=== PATIENT | female | born 1940 | race Two or more races ===

== ENCOUNTER 2021-10-31 13:13 | Inpatient (IN) | payer MEDICARE, OTHER ==
[~2021-10-31] VITALS: Ht 149.9 cm; Wt 88.9 kg
[2021-10-31] MEDS ORDERED: REMEDY ESSENTIAL ZINC PASTE 113 GM TOP PRN (19:15)
[2021-10-31 20:03] VITALS: BP 112/38
[2021-10-31] MEDS ORDERED: ASPI-866 PO ×2 (20:57→21:12)
[2021-10-31] MEDS ORDERED: CYCL30DR EACHEYE (20:58)
[2021-10-31] MEDS ORDERED: BRIM5DRO2 EACHEYE (21:05)
[2021-10-31] MEDS ORDERED: PHEN100C4 PO (21:05)
[2021-10-31] MEDS ORDERED: CYAN500T9 PO (21:05)
[2021-10-31] MEDS ORDERED: ALEN70TA80 PO (21:05)
[2021-10-31] MEDS ORDERED: LATA2.5D15 OP (21:05)
[2021-10-31] MEDS ORDERED: ERGO500040 PO (21:05)
[2021-10-31] MEDS ORDERED: DOCU250C14 PO (21:05)
[2021-10-31] MEDS ORDERED: ROSU10TA2 PO (21:12)
[2021-10-31] MEDS ORDERED: CLOP75TA15 PO (21:12)
[2021-10-31] MEDS ORDERED: LOSA1TAB36 PO (21:12)
[2021-10-31] MEDS ORDERED: BEPO10DR EACHEYE (21:12)
[2021-10-31] MEDS ORDERED: MECL-159 PO (21:12)
[2021-10-31] MEDS ORDERED: DICL50TA9 PO (21:12)
[2021-10-31] MEDS ORDERED: MEMA10TA PO (21:12)
[2021-10-31] MEDS ORDERED: DEXL60CA3 PO (21:12)
[2021-10-31] MEDS ORDERED: ICOS1CAP PO (21:12)
[2021-10-31] MEDS: PHENYTOIN SODIUM EXTENDED 100 MG CAPSULE.SA PO SCH (22:46)
[2021-11-01 03:16] VITALS: BP 120/68
--- NOTE | 2021-11-01 05:55 | NUR ---
Arrived at 2002 from [facility] via gurney by ambulance. AO x2, forgetful and confused at times. On 2L NC saturating at 97-98%, titrated O2 1L NC saturating at 95%. No signs of acute distress noted. Turkish speaking, able to understand basic [place]i. IV in R hand intact, patent and saline flushed. Seizure precautions implemented. MRSA swab done. Denies pain and discomfort. Call lights within reach. Safety measures maintained. Will endorse to am shift.
--- NOTE | 2021-11-01 07:30 | NUR ---
Alert, oriented x 1, calm and cooperative. O2 at 1L/NC. Bed alarm on
[2021-11-01 08:06] VITALS: BP 110/40
[2021-11-01] MEDS ORDERED: MECLIZINE HCL 25 MG TABLET PO PRN ×2 (11:15→12:18)
--- NOTE | 2021-11-01 12:00 | NUR ---
PT/OT/ST juanjose done. Assisted with meal, able to consume 25% of food served.
--- NOTE | 2021-11-01 16:00 | NUR ---
Patient more confused. Assisted to the bathroom with FWW.
[2021-11-01] MEDS ORDERED: DOCUSATE SODIUM 250 MG CAPSULE PO SCH (17:00)
[2021-11-01] MEDS: MEMANTINE HCL 10 MG TABLET PO SCH (17:33)
[2021-11-01] MEDS: DOCUSATE SODIUM 100 MG CAPSULE PO SCH (17:34)
[2021-11-01] MEDS ORDERED: DICLOFENAC SODIUM 50 MG PO SCH (18:00)
--- NOTE | 2021-11-01 18:47 | NUR ---
Room air with O2 sat of 96%. Free from fall or injury. Bed alarm on
[2021-11-01 20:00] VITALS: BP 120/77
[2021-11-01] MEDS ORDERED: PHENYTOIN SODIUM EXTENDED 100 MG CAPSULE.SA PO SCH (21:00)
[2021-11-01] MEDS: BRIMONIDINE 0.2% OPHT DROP 10 ML BOTTLE EACHEYE SCH (21:06)
[2021-11-01] MEDS: LATANOPROST OPHT DROP 2.5 ML BOTTLE EACHEYE SCH (21:07)
[2021-11-01] MEDS: PHENYTOIN SODIUM EXTENDED 100 MG CAPSULE.SA PO SCH (21:07)
[2021-11-01] MEDS: ATORVASTATIN 20 MG TABLET PO SCH (21:07)
[2021-11-01] MEDS: TIMOLOL MALEATE 0.5% OPHT DROP 5 ML BOTTLE EACHEYE SCH (21:30)
[2021-11-02 04:45] VITALS: BP 133/50
--- NOTE | 2021-11-02 05:08 | NUR ---
Awake alert and oriented x1-2 Confused and disoriented. Needs attended. Kept comfortable. Incontinent of bowel and bladder. Kept clean and dry. Will monitor patient.VSS.
[2021-11-02] MEDS: PANTOPRAZOLE SODIUM 40 MG TABLET.DR PO SCH (06:30)
[2021-11-02 08:00] VITALS: BP 116/59
[2021-11-02] MEDS ORDERED: Medication Not On Formulary EA (Cyanocobalamin (Vitamin B-12) 500 MCG) PO SCH (09:00)
[2021-11-02] MEDS ORDERED: Medication Not On Formulary EA (Rosuvastatin Calcium (Crestor) 1 TAB) PO SCH (09:00)
[2021-11-02] MEDS ORDERED: Icosapent Ethyl (Vascepa) 1 GM) PO SCH (09:00)
[2021-11-02] MEDS ORDERED: Medication Not On Formulary EA (Losartan/Hydrochlorothiazide (Losartan-Hctz 50-12.5 Mg T PO SCH (09:00)
[2021-11-02] MEDS ORDERED: LOSARTAN POTASSIUM 50 MG TABLET PO SCH (09:00)
[2021-11-02] MEDS: CLOPIDOGREL 75 MG TABLET PO SCH (10:07)
[2021-11-02] MEDS: ASPIRIN EC 81 MG TABLET.DR PO SCH (10:07)
[2021-11-02] MEDS: HYDROCHLOROTHIAZIDE 12.5 MG CAPSULE PO SCH (10:08)
[2021-11-02] MEDS: LOSARTAN POTASSIUM 50 MG TABLET PO SCH (10:08)
[2021-11-02] MEDS: CYANOCOBALAMIN 1,000 MCG TABLET PO SCH (10:09)
[2021-11-02] MEDS: DOCUSATE SODIUM 100 MG CAPSULE PO SCH ×2 (10:09→16:47)
[2021-11-02] MEDS: MEMANTINE HCL 10 MG TABLET PO SCH ×2 (10:09→16:47)
[2021-11-02] MEDS: BRIMONIDINE 0.2% OPHT DROP 10 ML BOTTLE EACHEYE SCH ×2 (10:11→20:58)
[2021-11-02] MEDS: TIMOLOL MALEATE 0.5% OPHT DROP 5 ML BOTTLE EACHEYE SCH ×2 (10:11→20:57)
[2021-11-02 15:14] VITALS: BP 102/54
[2021-11-02 20:34] VITALS: BP 123/60
[2021-11-02] MEDS: LATANOPROST OPHT DROP 2.5 ML BOTTLE EACHEYE SCH (20:57)
[2021-11-02] MEDS: PHENYTOIN SODIUM EXTENDED 100 MG CAPSULE.SA PO SCH (20:58)
[2021-11-02] MEDS: ATORVASTATIN 20 MG TABLET PO SCH (20:58)
[2021-11-03 04:25] VITALS: BP 129/81
--- NOTE | 2021-11-03 04:52 | NUR ---
Quiet night. AAOx1-2 Confused and disoriented. VSS. Needs attended. All due meds given. Fall precautions maintained. Incontinent of bowel and bladder. Kept clean and dry. No BM noted this shift. All eyedrops given as scheduled.Will monitor.
[2021-11-03] MEDS: PANTOPRAZOLE SODIUM 40 MG TABLET.DR PO SCH (06:10)
[2021-11-03] MEDS: ALENDRONATE SODIUM 70 MG TABLET PO SCH (06:34)
[2021-11-03] MEDS: DOCUSATE SODIUM 100 MG CAPSULE PO SCH ×2 (08:35→17:24)
[2021-11-03] MEDS: LOSARTAN POTASSIUM 50 MG TABLET PO SCH (08:36)
[2021-11-03] MEDS: CYANOCOBALAMIN 1,000 MCG TABLET PO SCH (08:40)
[2021-11-03] MEDS: HYDROCHLOROTHIAZIDE 12.5 MG CAPSULE PO SCH (08:40)
[2021-11-03] MEDS: ASPIRIN EC 81 MG TABLET.DR PO SCH (08:40)
[2021-11-03] MEDS: MEMANTINE HCL 10 MG TABLET PO SCH ×2 (08:41→17:24)
[2021-11-03] MEDS: CLOPIDOGREL 75 MG TABLET PO SCH (08:41)
[2021-11-03] MEDS: TIMOLOL MALEATE 0.5% OPHT DROP 5 ML BOTTLE EACHEYE SCH ×2 (08:45→20:38)
[2021-11-03] MEDS: BRIMONIDINE 0.2% OPHT DROP 10 ML BOTTLE EACHEYE SCH ×2 (08:45→20:39)
[2021-11-03 08:52] VITALS: BP 137/50
--- NOTE | 2021-11-03 09:24 | NUR ---
INDIVIDUALIZED PLAN OF CARE
[2021-11-03] MEDS: ERGOCALCIFEROL 50,000 UNIT CAPSULE PO SCH (14:22)
[2021-11-03 15:57] VITALS: BP 133/59
[2021-11-03] MEDS: GLUCERNA SHAKE VANILLA 237 ML CAN PO SCH (17:24)
[2021-11-03 20:04] VITALS: BP 111/41
[2021-11-03] MEDS: LATANOPROST OPHT DROP 2.5 ML BOTTLE EACHEYE SCH (20:39)
[2021-11-03] MEDS: ATORVASTATIN 20 MG TABLET PO SCH (20:39)
[2021-11-03] MEDS: PHENYTOIN SODIUM EXTENDED 100 MG CAPSULE.SA PO SCH (20:39)
[2021-11-04 04:54] VITALS: BP 223/58
[2021-11-04] MEDS: PANTOPRAZOLE SODIUM 40 MG TABLET.DR PO SCH (06:17)
--- NOTE | 2021-11-04 07:50 | NUR ---
RECEIVED PATIENT IN BED AWAKE ALERT AND AWARE WITH LANGUAGE BARRIER BUT ABLE TO MAKE SIMPLE NEEDS KNOWN ON ROOM AIR WITH NO SHORTNESS OF BREATH CALL LIGHTS AND PERSONAL BELONGINGS ARE WITHIN EASY REACH WILL CONTINUE WITH THERAPIES ORDERED WILL CONTINUE TO OBSERVE AND PROVIDE SAFETY.
[2021-11-04 08:00] VITALS: BP 110/56
[2021-11-04] MEDS: CLOPIDOGREL 75 MG TABLET PO SCH (09:03)
[2021-11-04] MEDS: CYANOCOBALAMIN 1,000 MCG TABLET PO SCH (09:03)
[2021-11-04] MEDS: LOSARTAN POTASSIUM 50 MG TABLET PO SCH (09:04)
[2021-11-04] MEDS: ASPIRIN EC 81 MG TABLET.DR PO SCH (09:04)
[2021-11-04] MEDS: MEMANTINE HCL 10 MG TABLET PO SCH ×2 (09:04→17:14)
[2021-11-04] MEDS: DOCUSATE SODIUM 100 MG CAPSULE PO SCH ×2 (09:04→17:13)
[2021-11-04] MEDS: HYDROCHLOROTHIAZIDE 12.5 MG CAPSULE PO SCH (09:04)
[2021-11-04] MEDS: TRIAMCINOLONE ACET 0.025% CREA 15 GM TUBE TP SCH ×2 (09:05→17:19)
[2021-11-04] MEDS: BRIMONIDINE 0.2% OPHT DROP 10 ML BOTTLE EACHEYE SCH ×2 (09:05→20:52)
[2021-11-04] MEDS: TIMOLOL MALEATE 0.5% OPHT DROP 5 ML BOTTLE EACHEYE SCH ×2 (09:05→20:51)
[2021-11-04] MEDS: GLUCERNA SHAKE VANILLA 237 ML CAN PO SCH (09:12)
--- NOTE | 2021-11-04 15:35 | NUR ---
NOTED A SUPERFICIAL PEELING OF THE SKIN ON HER RIGHT ELBOW DID NOT KNOW HOW IT HAPPENED NO BLEEDING CLEANSED WITH SERGIO MCMILLAN NOTIFIED WITH NEW ORDERS AND NOTED.
[2021-11-04 16:00] VITALS: BP 110/59
[2021-11-04] MEDS: NEOMY/BACITRAC/POLYMI OINT 28.35 GM TUBE TOP SCH (16:05)
--- NOTE | 2021-11-04 18:00 | NUR ---
RESTING IN ROOM ENCOURAGED TO EAT HER DINNER SHE HAS POOR APPETITE.
[2021-11-04 20:06] VITALS: BP 109/45
[2021-11-04] MEDS: PHENYTOIN SODIUM EXTENDED 100 MG CAPSULE.SA PO SCH (20:50)
[2021-11-04] MEDS: ATORVASTATIN 20 MG TABLET PO SCH (20:51)
[2021-11-04] MEDS: LATANOPROST OPHT DROP 2.5 ML BOTTLE EACHEYE SCH (20:52)
[2021-11-05 04:06] VITALS: BP 117/55
[2021-11-05] MEDS: PANTOPRAZOLE SODIUM 40 MG TABLET.DR PO SCH (06:13)
--- NOTE | 2021-11-05 07:30 | NUR ---
IN BED AWAKE ALERT WITH LANGUAGE BARRIER ABLE TO MAKE SIMPLE NEEDS KNOWN DENIES PAIN OR DISCOMFORTS AT THIS TIME CALL LIGHTS AND HER PERSONAL BELONGINGS ARE WITHIN EASY REACH WILL CONTINUE TO OBSERVE
--- NOTE | 2021-11-05 07:55 | NUR ---
PATIENT SEEN IN HALLWAY WALKING FROM HER ROOM WITH A FRONT WHEEL WALKER PATIENT ASSISTED BACK TO HER ROOM AND ENCOURAGED TO ASK FOR A STAND BYE ASSIST WHENEVER SHE FEELS LIKE WALKING FOR SAFETY AND SHE EXPRESSED UNDERSTANDING.
[2021-11-05 08:22] VITALS: BP 122/72
[2021-11-05] MEDS: BRIMONIDINE 0.2% OPHT DROP 10 ML BOTTLE EACHEYE SCH ×2 (08:26→21:26)
[2021-11-05] MEDS: TIMOLOL MALEATE 0.5% OPHT DROP 5 ML BOTTLE EACHEYE SCH ×2 (08:26→21:26)
[2021-11-05] MEDS: ASPIRIN EC 81 MG TABLET.DR PO SCH (08:27)
[2021-11-05] MEDS: HYDROCHLOROTHIAZIDE 12.5 MG CAPSULE PO SCH (08:27)
[2021-11-05] MEDS: DOCUSATE SODIUM 100 MG CAPSULE PO SCH ×2 (08:27→16:49)
[2021-11-05] MEDS: MEMANTINE HCL 10 MG TABLET PO SCH ×2 (08:27→16:49)
[2021-11-05] MEDS: CLOPIDOGREL 75 MG TABLET PO SCH (08:27)
[2021-11-05] MEDS: CYANOCOBALAMIN 1,000 MCG TABLET PO SCH (08:27)
[2021-11-05] MEDS: LOSARTAN POTASSIUM 50 MG TABLET PO SCH (08:28)
[2021-11-05] MEDS: GLUCERNA SHAKE VANILLA 237 ML CAN PO SCH (08:28)
[2021-11-05] MEDS: TRIAMCINOLONE ACET 0.025% CREA 15 GM TUBE TP SCH ×2 (08:30→16:49)
[2021-11-05] MEDS: NEOMY/BACITRAC/POLYMI OINT 28.35 GM TUBE TOP SCH (08:30)
[2021-11-05 15:37] VITALS: BP 90/43
[2021-11-05 20:34] VITALS: BP 105/47
[2021-11-05] MEDS: PHENYTOIN SODIUM EXTENDED 100 MG CAPSULE.SA PO SCH (21:26)
[2021-11-05] MEDS: LATANOPROST OPHT DROP 2.5 ML BOTTLE EACHEYE SCH (21:26)
[2021-11-05] MEDS: ATORVASTATIN 20 MG TABLET PO SCH (21:26)
--- NOTE | 2021-11-06 04:44 | NUR ---
Awake alert and oriented x3-4 All needs attended. VSS. Repositioned for comfort. OOB to the BR with supervision Tolerated all her eyedrops given @ bedside. No acute distress noted.
[2021-11-06 04:47] VITALS: BP 133/74
[2021-11-06] MEDS: PANTOPRAZOLE SODIUM 40 MG TABLET.DR PO SCH (06:10)
[2021-11-06 09:11] VITALS: BP 124/64
[2021-11-06] MEDS: BRIMONIDINE 0.2% OPHT DROP 10 ML BOTTLE EACHEYE SCH ×2 (09:29→20:15)
[2021-11-06] MEDS: CLOPIDOGREL 75 MG TABLET PO SCH (09:31)
[2021-11-06] MEDS: DOCUSATE SODIUM 100 MG CAPSULE PO SCH ×2 (09:31→17:41)
[2021-11-06] MEDS: MEMANTINE HCL 10 MG TABLET PO SCH ×2 (09:31→17:40)
[2021-11-06] MEDS: CYANOCOBALAMIN 1,000 MCG TABLET PO SCH (09:32)
[2021-11-06] MEDS: TIMOLOL MALEATE 0.5% OPHT DROP 5 ML BOTTLE EACHEYE SCH ×2 (09:33→20:15)
[2021-11-06] MEDS: ASPIRIN EC 81 MG TABLET.DR PO SCH (09:33)
[2021-11-06] MEDS: LOSARTAN POTASSIUM 50 MG TABLET PO SCH (09:33)
[2021-11-06] MEDS: HYDROCHLOROTHIAZIDE 12.5 MG CAPSULE PO SCH (09:34)
[2021-11-06] MEDS: GLUCERNA SHAKE VANILLA 237 ML CAN PO SCH (09:34)
[2021-11-06] MEDS: TRIAMCINOLONE ACET 0.025% CREA 15 GM TUBE TP SCH ×2 (09:40→17:56)
[2021-11-06] MEDS: NEOMY/BACITRAC/POLYMI OINT 28.35 GM TUBE TOP SCH (09:41)
--- NOTE | 2021-11-06 15:49 | NUR ---
INTERDISCIPLINARY TEAM CONFERENCE
[2021-11-06 17:12] VITALS: BP 109/41
[2021-11-06] MEDS: PHENYTOIN SODIUM EXTENDED 100 MG CAPSULE.SA PO SCH (20:14)
[2021-11-06] MEDS: ATORVASTATIN 20 MG TABLET PO SCH (20:14)
[2021-11-06] MEDS: LATANOPROST OPHT DROP 2.5 ML BOTTLE EACHEYE SCH (20:16)
[2021-11-06 20:45] VITALS: BP 112/54
--- NOTE | 2021-11-06 22:06 | NUR ---
AAOx4 OOB with walker to the BR. Voiding well. Needs attended. VSS. Tolerated po meds well. Kept comfortable. No complaints presented during the shift. Fall precautions maintained.. Siderails up for safety. Call abdul within reach.
[2021-11-07 04:32] VITALS: BP 112/50
[2021-11-07] MEDS: PANTOPRAZOLE SODIUM 40 MG TABLET.DR PO SCH (06:14)
[2021-11-07 06:49] LABS: HEMATOCRIT 36.6 % (31.2-41.9); MEAN CORPUSCULAR HEMOGLOBIN 30.7 uug (24.7-32.8); MEAN CORPUSCULAR VOLUME 91.9 fL (75.5-95.3); PLATELET COUNT (AUTO) 542 K/uL (179-408)
[2021-11-07 07:19] LABS: CREATININE 0.9 mg/dL (0.6-1.3); MAGNESIUM 2.1 mg/dL (1.8-2.4); PHOSPHOROUS 3.4 mg/dL (2.5-4.9); POTASSIUM 4.1 mmol/L (3.5-5.1)
[2021-11-07 07:57] VITALS: BP 143/67
[2021-11-07] MEDS: BRIMONIDINE 0.2% OPHT DROP 10 ML BOTTLE EACHEYE SCH ×2 (08:18→20:37)
[2021-11-07] MEDS: CYANOCOBALAMIN 1,000 MCG TABLET PO SCH (08:19)
[2021-11-07] MEDS: HYDROCHLOROTHIAZIDE 12.5 MG CAPSULE PO SCH (08:19)
[2021-11-07] MEDS: CLOPIDOGREL 75 MG TABLET PO SCH (08:19)
[2021-11-07] MEDS: LOSARTAN POTASSIUM 50 MG TABLET PO SCH (08:19)
[2021-11-07] MEDS: MEMANTINE HCL 10 MG TABLET PO SCH ×2 (08:19→17:22)
[2021-11-07] MEDS: ASPIRIN EC 81 MG TABLET.DR PO SCH (08:20)
[2021-11-07] MEDS: NEOMY/BACITRAC/POLYMI OINT 28.35 GM TUBE TOP SCH (08:21)
[2021-11-07] MEDS: TRIAMCINOLONE ACET 0.025% CREA 15 GM TUBE TP SCH ×2 (08:21→17:27)
[2021-11-07] MEDS: DOCUSATE SODIUM 100 MG CAPSULE PO SCH ×2 (08:23→17:26)
[2021-11-07] MEDS: GLUCERNA SHAKE VANILLA 237 ML CAN PO SCH (08:23)
[2021-11-07] MEDS: TIMOLOL MALEATE 0.5% OPHT DROP 5 ML BOTTLE EACHEYE SCH ×2 (08:27→20:36)
[2021-11-07 16:01] VITALS: BP 96/42
--- NOTE | 2021-11-07 18:46 | NUR ---
Patient remains alert, not in any form of distress, on room air. She denies any pain or discomfort. Participated with PT/OT during the shift and tolerated well. She is compliant with medications and care. Assisted with her needs. Call light and frequently used items placed within patient's reach.
[2021-11-07 20:33] VITALS: BP 95/51
[2021-11-07] MEDS: LATANOPROST OPHT DROP 2.5 ML BOTTLE EACHEYE SCH (20:36)
[2021-11-07] MEDS: ATORVASTATIN 20 MG TABLET PO SCH (20:37)
[2021-11-07] MEDS: PHENYTOIN SODIUM EXTENDED 100 MG CAPSULE.SA PO SCH (20:37)
[2021-11-08 04:46] VITALS: BP 127/74
[2021-11-08] MEDS: PANTOPRAZOLE SODIUM 40 MG TABLET.DR PO SCH (06:08)
[2021-11-08 08:00] VITALS: BP 125/63
[2021-11-08] MEDS: BRIMONIDINE 0.2% OPHT DROP 10 ML BOTTLE EACHEYE SCH ×2 (08:36→21:09)
[2021-11-08] MEDS: TIMOLOL MALEATE 0.5% OPHT DROP 5 ML BOTTLE EACHEYE SCH ×2 (08:37→21:08)
[2021-11-08] MEDS: LOSARTAN POTASSIUM 50 MG TABLET PO SCH (08:42)
[2021-11-08] MEDS: DOCUSATE SODIUM 100 MG CAPSULE PO SCH ×2 (08:42→17:14)
[2021-11-08] MEDS: MEMANTINE HCL 10 MG TABLET PO SCH ×2 (08:43→17:14)
[2021-11-08] MEDS: CLOPIDOGREL 75 MG TABLET PO SCH (08:43)
[2021-11-08] MEDS: ASPIRIN EC 81 MG TABLET.DR PO SCH (08:43)
[2021-11-08] MEDS: CYANOCOBALAMIN 1,000 MCG TABLET PO SCH (08:43)
[2021-11-08] MEDS: HYDROCHLOROTHIAZIDE 12.5 MG CAPSULE PO SCH (08:43)
[2021-11-08] MEDS: TRIAMCINOLONE ACET 0.025% CREA 15 GM TUBE TP SCH ×2 (08:44→17:14)
[2021-11-08] MEDS: NEOMY/BACITRAC/POLYMI OINT 28.35 GM TUBE TOP SCH (08:44)
[2021-11-08] MEDS: GLUCERNA SHAKE VANILLA 237 ML CAN PO SCH (08:52)
--- NOTE | 2021-11-08 14:17 | NUR ---
Patient remains AAOX4, not in any form of distress, on room air. She denies any pain or discomfort. Participated with PT/OT during the shift, ambulate with FWW and tolerated well. She is compliant with medications and care. Assisted with her needs. Call light and frequently used items placed within patient's reach.
[2021-11-08 15:45] VITALS: BP 103/47
[2021-11-08] MEDS: ATORVASTATIN 20 MG TABLET PO SCH (20:54)
[2021-11-08] MEDS: PHENYTOIN SODIUM EXTENDED 100 MG CAPSULE.SA PO SCH (21:05)
[2021-11-08] MEDS: LATANOPROST OPHT DROP 2.5 ML BOTTLE EACHEYE SCH (21:09)
[2021-11-09 04:40] VITALS: BP 146/70
[2021-11-09] MEDS: PANTOPRAZOLE SODIUM 40 MG TABLET.DR PO SCH (06:08)
[2021-11-09 08:05] VITALS: BP 122/62
[2021-11-09] MEDS: ASPIRIN EC 81 MG TABLET.DR PO SCH (08:59)
[2021-11-09] MEDS: CYANOCOBALAMIN 1,000 MCG TABLET PO SCH (08:59)
[2021-11-09] MEDS: HYDROCHLOROTHIAZIDE 12.5 MG CAPSULE PO SCH (08:59)
[2021-11-09] MEDS: MEMANTINE HCL 10 MG TABLET PO SCH ×2 (08:59→16:47)
[2021-11-09] MEDS: DOCUSATE SODIUM 100 MG CAPSULE PO SCH ×2 (08:59→16:47)
[2021-11-09] MEDS: BRIMONIDINE 0.2% OPHT DROP 10 ML BOTTLE EACHEYE SCH ×2 (09:00→20:02)
[2021-11-09] MEDS: LOSARTAN POTASSIUM 50 MG TABLET PO SCH (09:00)
[2021-11-09] MEDS: CLOPIDOGREL 75 MG TABLET PO SCH (09:00)
[2021-11-09] MEDS: NEOMY/BACITRAC/POLYMI OINT 28.35 GM TUBE TOP SCH (09:02)
[2021-11-09] MEDS: GLUCERNA SHAKE VANILLA 237 ML CAN PO SCH (09:02)
[2021-11-09] MEDS: TRIAMCINOLONE ACET 0.025% CREA 15 GM TUBE TP SCH ×2 (09:02→16:48)
[2021-11-09] MEDS: TIMOLOL MALEATE 0.5% OPHT DROP 5 ML BOTTLE EACHEYE SCH ×2 (09:09→20:01)
[2021-11-09 16:13] VITALS: BP 93/45
[2021-11-09] MEDS: LATANOPROST OPHT DROP 2.5 ML BOTTLE EACHEYE SCH (20:02)
[2021-11-09] MEDS: PHENYTOIN SODIUM EXTENDED 100 MG CAPSULE.SA PO SCH (20:03)
[2021-11-09] MEDS: ATORVASTATIN 20 MG TABLET PO SCH (20:03)
[2021-11-09 20:20] VITALS: BP 135/62
[2021-11-10 04:32] VITALS: BP 114/53
[2021-11-10] MEDS: PANTOPRAZOLE SODIUM 40 MG TABLET.DR PO SCH (06:01)
[2021-11-10] MEDS: ALENDRONATE SODIUM 70 MG TABLET PO SCH (06:01)
[2021-11-10 07:42] VITALS: BP 125/54
[2021-11-10] MEDS: HYDROCHLOROTHIAZIDE 12.5 MG CAPSULE PO SCH (09:43)
[2021-11-10] MEDS: MEMANTINE HCL 10 MG TABLET PO SCH ×2 (09:44→17:24)
[2021-11-10] MEDS: LOSARTAN POTASSIUM 50 MG TABLET PO SCH (09:44)
[2021-11-10] MEDS: CLOPIDOGREL 75 MG TABLET PO SCH (09:44)
[2021-11-10] MEDS: DOCUSATE SODIUM 100 MG CAPSULE PO SCH ×2 (09:44→17:25)
[2021-11-10] MEDS: ASPIRIN EC 81 MG TABLET.DR PO SCH (09:44)
[2021-11-10] MEDS: CYANOCOBALAMIN 1,000 MCG TABLET PO SCH (09:48)
[2021-11-10] MEDS: NEOMY/BACITRAC/POLYMI OINT 28.35 GM TUBE TOP SCH (09:49)
[2021-11-10] MEDS: TRIAMCINOLONE ACET 0.025% CREA 15 GM TUBE TP SCH ×2 (09:49→17:30)
[2021-11-10] MEDS: BRIMONIDINE 0.2% OPHT DROP 10 ML BOTTLE EACHEYE SCH ×2 (09:50→20:35)
[2021-11-10] MEDS: GLUCERNA SHAKE VANILLA 237 ML CAN PO SCH (09:52)
[2021-11-10] MEDS: TIMOLOL MALEATE 0.5% OPHT DROP 5 ML BOTTLE EACHEYE SCH ×2 (09:59→20:35)
[2021-11-10] MEDS: ERGOCALCIFEROL 50,000 UNIT CAPSULE PO SCH (14:38)
[2021-11-10 15:06] VITALS: BP 124/55
[2021-11-10] MEDS: ATORVASTATIN 20 MG TABLET PO SCH (20:34)
[2021-11-10] MEDS: PHENYTOIN SODIUM EXTENDED 100 MG CAPSULE.SA PO SCH (20:34)
[2021-11-10] MEDS: LATANOPROST OPHT DROP 2.5 ML BOTTLE EACHEYE SCH (20:36)
[2021-11-10 20:37] VITALS: BP 100/48
[2021-11-11 04:46] VITALS: BP 119/54
[2021-11-11] MEDS: PANTOPRAZOLE SODIUM 40 MG TABLET.DR PO SCH (05:47)
[2021-11-11 08:00] VITALS: BP 96/60
[2021-11-11] MEDS: LOSARTAN POTASSIUM 50 MG TABLET PO SCH (09:00)
[2021-11-11] MEDS: BRIMONIDINE 0.2% OPHT DROP 10 ML BOTTLE EACHEYE SCH ×2 (09:44→20:54)
[2021-11-11] MEDS: CLOPIDOGREL 75 MG TABLET PO SCH (09:45)
[2021-11-11] MEDS: TIMOLOL MALEATE 0.5% OPHT DROP 5 ML BOTTLE EACHEYE SCH ×2 (09:45→20:54)
[2021-11-11] MEDS: ASPIRIN EC 81 MG TABLET.DR PO SCH (09:46)
[2021-11-11] MEDS: HYDROCHLOROTHIAZIDE 12.5 MG CAPSULE PO SCH (09:46)
[2021-11-11] MEDS: DOCUSATE SODIUM 100 MG CAPSULE PO SCH ×2 (09:46→16:49)
[2021-11-11] MEDS: MEMANTINE HCL 10 MG TABLET PO SCH ×2 (09:48→16:49)
[2021-11-11] MEDS: CYANOCOBALAMIN 1,000 MCG TABLET PO SCH (09:49)
[2021-11-11] MEDS: TRIAMCINOLONE ACET 0.025% CREA 15 GM TUBE TP SCH ×2 (09:51→16:49)
[2021-11-11] MEDS: NEOMY/BACITRAC/POLYMI OINT 28.35 GM TUBE TOP SCH (09:51)
[2021-11-11] MEDS: GLUCERNA SHAKE VANILLA 237 ML CAN PO SCH (09:53)
[2021-11-11 16:00] VITALS: BP 109/42
--- NOTE | 2021-11-11 18:23 | NUR ---
Patient remained stable, no acute distress noted. Kept call light within reach. Safety measures maintained at all times, due medication given. All needs attended. Will endorse for continuity of care.
[2021-11-11] MEDS: PHENYTOIN SODIUM EXTENDED 100 MG CAPSULE.SA PO SCH (20:53)
[2021-11-11] MEDS: ATORVASTATIN 20 MG TABLET PO SCH (20:53)
[2021-11-11] MEDS: LATANOPROST OPHT DROP 2.5 ML BOTTLE EACHEYE SCH (20:54)
[2021-11-12] MEDS: PANTOPRAZOLE SODIUM 40 MG TABLET.DR PO SCH (06:14)
--- NOTE | 2021-11-12 07:20 | NUR ---
Received Patient in bed. AOx4. Room air. Not in acute distress. Patient denies pain at this time. Bed alarm on. Call light within reach. Monitor for continuity of care.
[2021-11-12 07:29] VITALS: BP 125/60
[2021-11-12] MEDS: CLOPIDOGREL 75 MG TABLET PO SCH (08:40)
[2021-11-12] MEDS: MEMANTINE HCL 10 MG TABLET PO SCH ×2 (08:40→16:46)
[2021-11-12] MEDS: ASPIRIN EC 81 MG TABLET.DR PO SCH (08:40)
[2021-11-12] MEDS: LOSARTAN POTASSIUM 50 MG TABLET PO SCH (08:40)
[2021-11-12] MEDS: HYDROCHLOROTHIAZIDE 12.5 MG CAPSULE PO SCH (08:41)
[2021-11-12] MEDS: DOCUSATE SODIUM 100 MG CAPSULE PO SCH ×2 (08:42→16:45)
[2021-11-12] MEDS: BRIMONIDINE 0.2% OPHT DROP 10 ML BOTTLE EACHEYE SCH ×2 (08:42→20:28)
[2021-11-12] MEDS: TIMOLOL MALEATE 0.5% OPHT DROP 5 ML BOTTLE EACHEYE SCH ×2 (08:42→20:29)
[2021-11-12] MEDS: GLUCERNA SHAKE VANILLA 237 ML CAN PO SCH (08:43)
[2021-11-12] MEDS: CYANOCOBALAMIN 1,000 MCG TABLET PO SCH (08:43)
[2021-11-12] MEDS: NEOMY/BACITRAC/POLYMI OINT 28.35 GM TUBE TOP SCH (08:45)
[2021-11-12] MEDS: TRIAMCINOLONE ACET 0.025% CREA 15 GM TUBE TP SCH ×2 (08:45→16:48)
[2021-11-12 12:00] VITALS: BP 90/40
[2021-11-12 16:00] VITALS: BP 107/54
--- NOTE | 2021-11-12 18:45 | NUR ---
Patient resting in bed. AOx4. Room air. Not in acute distress. Call light within reach, bed alarm on. Compliant with medication and care. Participated with physical and occupational therapy. Needs anticipated and met. Will endorse to incoming shift
[2021-11-12] MEDS: PHENYTOIN SODIUM EXTENDED 100 MG CAPSULE.SA PO SCH (20:27)
[2021-11-12] MEDS: ATORVASTATIN 20 MG TABLET PO SCH (20:27)
[2021-11-12] MEDS: LATANOPROST OPHT DROP 2.5 ML BOTTLE EACHEYE SCH (20:28)
[2021-11-12 20:46] VITALS: BP 110/52
[2021-11-13] MEDS: PANTOPRAZOLE SODIUM 40 MG TABLET.DR PO SCH (01:50)
[2021-11-13 05:10] VITALS: BP 112/49
--- NOTE | 2021-11-13 07:30 | NUR ---
patient sitting on bed having breakfast, alert and oriented x4. Not in respiratory distress, on room air, no complain of pain. Seen ambulating to bathroom with walker.
[2021-11-13 08:07] VITALS: BP 107/49
[2021-11-13] MEDS: ASPIRIN EC 81 MG TABLET.DR PO SCH (09:49)
[2021-11-13] MEDS: LOSARTAN POTASSIUM 50 MG TABLET PO SCH (09:49)
[2021-11-13] MEDS: CLOPIDOGREL 75 MG TABLET PO SCH (09:50)
[2021-11-13] MEDS: HYDROCHLOROTHIAZIDE 12.5 MG CAPSULE PO SCH (09:50)
[2021-11-13] MEDS: MEMANTINE HCL 10 MG TABLET PO SCH ×2 (09:50→17:57)
[2021-11-13] MEDS: DOCUSATE SODIUM 100 MG CAPSULE PO SCH ×2 (09:50→17:57)
[2021-11-13] MEDS: CYANOCOBALAMIN 1,000 MCG TABLET PO SCH (09:51)
[2021-11-13] MEDS: NEOMY/BACITRAC/POLYMI OINT 28.35 GM TUBE TOP SCH (09:54)
[2021-11-13] MEDS: BRIMONIDINE 0.2% OPHT DROP 10 ML BOTTLE EACHEYE SCH ×2 (09:55→20:30)
[2021-11-13] MEDS: TRIAMCINOLONE ACET 0.025% CREA 15 GM TUBE TP SCH ×2 (09:58→17:58)
[2021-11-13] MEDS: TIMOLOL MALEATE 0.5% OPHT DROP 5 ML BOTTLE EACHEYE SCH ×2 (10:01→20:30)
--- NOTE | 2021-11-13 10:45 | NUR ---
Able to tolerate activities with physical therapy.
--- NOTE | 2021-11-13 15:05 | NUR ---
INTERDISCIPLINARY TEAM CONFERENCE
[2021-11-13 16:21] VITALS: BP 125/57
[2021-11-13 20:00] VITALS: BP 121/55
[2021-11-13] MEDS: PHENYTOIN SODIUM EXTENDED 100 MG CAPSULE.SA PO SCH (20:30)
[2021-11-13] MEDS: LATANOPROST OPHT DROP 2.5 ML BOTTLE EACHEYE SCH (20:30)
[2021-11-13] MEDS: ATORVASTATIN 20 MG TABLET PO SCH (20:30)
[2021-11-14 04:00] VITALS: BP_SYST 116; BP_SYST 139; BP_DIAS 46; BP_DIAS 65
[2021-11-14] MEDS: PANTOPRAZOLE SODIUM 40 MG TABLET.DR PO SCH (06:19)
[2021-11-14 07:44] VITALS: BP 123/54
[2021-11-14] MEDS: TIMOLOL MALEATE 0.5% OPHT DROP 5 ML BOTTLE EACHEYE SCH ×2 (09:10→20:55)
[2021-11-14] MEDS: DOCUSATE SODIUM 100 MG CAPSULE PO SCH ×2 (09:10→17:00)
[2021-11-14] MEDS: HYDROCHLOROTHIAZIDE 12.5 MG CAPSULE PO SCH (09:11)
[2021-11-14] MEDS: CLOPIDOGREL 75 MG TABLET PO SCH (09:12)
[2021-11-14] MEDS: CYANOCOBALAMIN 1,000 MCG TABLET PO SCH (09:12)
[2021-11-14] MEDS: LOSARTAN POTASSIUM 50 MG TABLET PO SCH (09:12)
[2021-11-14] MEDS: MEMANTINE HCL 10 MG TABLET PO SCH ×2 (09:12→17:00)
[2021-11-14] MEDS: ASPIRIN EC 81 MG TABLET.DR PO SCH (09:12)
[2021-11-14] MEDS: TRIAMCINOLONE ACET 0.025% CREA 15 GM TUBE TP SCH ×2 (09:14→17:00)
[2021-11-14] MEDS: NEOMY/BACITRAC/POLYMI OINT 28.35 GM TUBE TOP SCH (09:14)
[2021-11-14] MEDS: BRIMONIDINE 0.2% OPHT DROP 10 ML BOTTLE EACHEYE SCH ×2 (10:14→20:54)
[2021-11-14 15:57] VITALS: BP 129/66
[2021-11-14 20:00] VITALS: BP 109/53
[2021-11-14] MEDS: PHENYTOIN SODIUM EXTENDED 100 MG CAPSULE.SA PO SCH (20:44)
[2021-11-14] MEDS: ATORVASTATIN 20 MG TABLET PO SCH (20:45)
[2021-11-14] MEDS: LATANOPROST OPHT DROP 2.5 ML BOTTLE EACHEYE SCH (20:55)
[2021-11-15 04:00] VITALS: BP 134/61
--- NOTE | 2021-11-15 05:10 | NUR ---
Received to care, lying in bed, anxious, but pleasant upon approach. She apparently was anxious, because she wanted her eye drops for her Glaucoma, and her nighttime pills. She appeared to be totally calm and satisfied, after getting her bedtime medications and eye drops. She doesn't speak [place], but calls her daughter on her cell phone, when she needs translation. After getting her medications, she went to sleep, and slept well throughout the night, with her call abdul in reach. She is independent, using the front wheel walker, but was checked on frequently, for safety. As of now, she continues to sleep. No distress, noted.
[2021-11-15 06:36] LABS: HEMATOCRIT 32.8 % (31.2-41.9); MEAN CORPUSCULAR HEMOGLOBIN 31.1 uug (24.7-32.8); MEAN CORPUSCULAR VOLUME 91.9 fL (75.5-95.3); PLATELET COUNT (AUTO) 414 K/uL (179-408)
[2021-11-15] MEDS: PANTOPRAZOLE SODIUM 40 MG TABLET.DR PO SCH (06:59)
[2021-11-15 07:32] LABS: BILIRUBIN,TOTAL 0.3 mg/dL (0.2-1.0); CREATININE 0.7 mg/dL (0.6-1.3); PHOSPHOROUS 3.6 mg/dL (2.5-4.9); POTASSIUM 3.9 mmol/L (3.5-5.1); TOTAL PROTEIN, SERUM 6.8 g/dL (6.4-8.2)
[2021-11-15 08:16] LABS: THYROID STIMULATING HORMONE 4.068 mIU/mL (0.358-3.740)
[2021-11-15] MEDS: HYDROCHLOROTHIAZIDE 12.5 MG CAPSULE PO SCH (10:32)
[2021-11-15] MEDS: ASPIRIN EC 81 MG TABLET.DR PO SCH (10:32)
[2021-11-15] MEDS: LOSARTAN POTASSIUM 50 MG TABLET PO SCH (10:32)
[2021-11-15] MEDS: CYANOCOBALAMIN 1,000 MCG TABLET PO SCH (10:32)
[2021-11-15] MEDS: TIMOLOL MALEATE 0.5% OPHT DROP 5 ML BOTTLE EACHEYE SCH (10:33)
[2021-11-15] MEDS: MEMANTINE HCL 10 MG TABLET PO SCH ×2 (10:33→17:38)
[2021-11-15] MEDS: DOCUSATE SODIUM 100 MG CAPSULE PO SCH ×2 (10:33→17:38)
[2021-11-15] MEDS: CLOPIDOGREL 75 MG TABLET PO SCH (10:33)
[2021-11-15] MEDS: BRIMONIDINE 0.2% OPHT DROP 10 ML BOTTLE EACHEYE SCH (10:34)
[2021-11-15] MEDS: NEOMY/BACITRAC/POLYMI OINT 28.35 GM TUBE TOP SCH (10:35)
[2021-11-15] MEDS: TRIAMCINOLONE ACET 0.025% CREA 15 GM TUBE TP SCH ×2 (10:36→17:39)
[2021-11-15 12:03] VITALS: BP 125/48
[2021-11-15 16:10] VITALS: BP 110/30
--- NOTE | 2021-11-15 18:51 | NUR ---
d/c to home with daughter. d/c instructions given to daughter verbalized understanding
== END 2021-11-15 18:50 | disposition home health service (06) | DRG 71 ==
PROVIDERS: ADMIT Physical Medicine & Rehabilitation Pain Medicine; ATTEND Physical Medicine & Rehabilitation Pain Medicine
DX: G93.41 Metabolic encephalopathy (principal); E44.0 Moderate protein-calorie malnutrition; R53.1 Weakness; Z86.73 Personal history of transient ischemic attack (TIA), and cerebral infarction without residual deficits; I10 Essential (primary) hypertension; E78.5 Hyperlipidemia, unspecified; I25.10 Atherosclerotic heart disease of native coronary artery without angina pectoris; K21.9 Gastro-esophageal reflux disease without esophagitis; Z68.39 Body mass index [BMI] 39.0-39.9, adult; E86.0 Dehydration; E66.9 Obesity, unspecified; F03.90 Unspecified dementia, unspecified severity, without behavioral disturbance, psychotic disturbance, mood disturbance, and anxiety; G40.909 Epilepsy, unspecified, not intractable, without status epilepticus; H40.9 Unspecified glaucoma; Z87.440 Personal history of urinary (tract) infections; Z91.81 History of falling; R79.89 Other specified abnormal findings of blood chemistry; R91.1 Solitary pulmonary nodule; Z88.0 Allergy status to penicillin; Z91.041 Radiographic dye allergy status; E01.0 Iodine-deficiency related diffuse (endemic) goiter
CPT/HCPCS: 36415; 83735; 84100; 84443; 85025; 97161; 97535-GO-CO; A4663; A6209; J8499